=== PATIENT | female | born 1980 | race Caucasian/White ===

== ENCOUNTER 2017-06-17 17:53 | Emergency (ER) | payer MEDICAID, SELFPAY ==
[2017-06-17 18:29] VITALS: BP 128/83; PULSE 108; RESP 20; TEMP 36.9; O2SAT 97; BMI 22.7
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
[2017-06-17 20:04] VITALS: BP 100/62; PULSE 107; RESP 16; TEMP 36.8
== END 2017-06-17 20:10 | disposition home or self-care (01) ==
PROVIDERS: Emergency Provider Emergency Medicine; Family Provider Pediatrics
DX: M79.605 Pain in left leg (principal)
CPT/HCPCS: 96372; 99281

== ENCOUNTER → 2017-06-20 15:26 | Outpatient (CLI) | payer MEDICAID, SELFPAY ==
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
== END ==
PROVIDERS: Visit Provider Emergency Medicine
DX: M79.662 Pain in left lower leg (principal)
CPT/HCPCS: 93971

== ENCOUNTER 2020-11-27 09:30 | Emergency (ER) | payer MEDICAID, SELFPAY ==
[2020-11-27 09:31] VITALS: BP 143/71; PULSE 117; RESP 20; TEMP 36.8; O2SAT 100; BMI 22.4
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
[2020-11-27 10:06] VITALS: BP 135/74; PULSE 98; RESP 20; TEMP 36.6; O2SAT 98
== END 2020-11-27 10:16 ==
LOC: ER 10:08
PROVIDERS: Emergency Provider Emergency Medicine
DX: Z02.89 Encounter for other administrative examinations (principal); F11.90 Opioid use, unspecified, uncomplicated
CPT/HCPCS: 99282